=== PATIENT | female | born 1950 | race Caucasian/White ===

== ENCOUNTER 2019-07-04 13:09 | Emergency (ER) | payer MEDICARE, OTHER ==
[~2019-07-04] VITALS: Ht 162.6 cm; Wt 74.5 kg
[2019-07-04] MEDS ORDERED: HYDROCODONE/ACETAMINOPHEN 5/325MG TABLET PO ONE (18:00)
[2019-07-04 20:20] VITALS: BP 145/82
== END 2019-07-04 20:22 | disposition home or self-care (01) ==
LOC: ER 13:09
DX: M25.511 Pain in right shoulder (principal); Z88.8 Allergy status to other drugs, medicaments and biological substances
CPT/HCPCS: 73030; 99283